=== PATIENT | male | born 1930 | race Caucasian/White ===

== ENCOUNTER 2017-09-24 05:58 | Inpatient (IN) | payer OTHER ==
[~2017-09-24] VITALS: Ht 175.3 cm; Wt 103.9 kg
[2017-09-24 06:14] VITALS: BP 138/88
[2017-09-24 13:31] VITALS: BP 159/77
[2017-09-24 17:20] LABS: BASOPHIL % 0.3 % (0-2); PLATELET COUNT 146 x10^3mcL (130-400); RED CELL DISTRIBUTION WIDTH 13.2 % (11.5-14.5)
[2017-09-24] MEDS ORDERED: METOPROLOL TART25 M1 PO (17:24)
[2017-09-24] MEDS ORDERED: FUROSEMIDE20 MG PO (17:24)
[2017-09-24] MEDS ORDERED: PAXIL20 M1 PO (17:25)
[2017-09-24] MEDS ORDERED: ZESTRIL20 MG PO (17:25)
[2017-09-24 17:32] VITALS: BP 111/72
[2017-09-24 17:36] LABS: ALKALINE PHOSPHATASE 71 U/L (46-116); ALT/SGPT 16 U/L (16-63); AST/SGOT 19 U/L (15-37); CALCIUM 8.2 mg/dL (8.5-10.1); CARBON DIOXIDE 29.1 mmol/L (21-32); CHLORIDE SERUM 107 mmol/L (98-107); GLUCOSE SERUM 198 mg/dL (74-106); HDL CHOLESTEROL 40 mg/dL (40-60); POTASSIUM SERUM 4.5 mmol/L (3.5-5.1); SODIUM SERUM 138 mmol/L (136-145); TRIGLYCERIDES 88 mg/dL (<150)
[2017-09-24 17:39] LABS: ALBUMIN 2.9 g/dL (3.4-5.0); CHOLESTEROL 130 mg/dL (<200); CHOLESTEROL/HDL RATIO 3.3; TOTAL PROTEIN, SERUM 5.9 g/dL (6.4-8.2)
[2017-09-24 21:39] VITALS: BP 102/65
[2017-09-25 05:39] VITALS: BP 115/70
[2017-09-25 05:58] LABS: BASOPHIL % 0.1 % (0-2); RED CELL DISTRIBUTION WIDTH 13.2 % (11.5-14.5)
[2017-09-25 06:16] LABS: CALCIUM 8.1 mg/dL (8.5-10.1); CHLORIDE SERUM 107 mmol/L (98-107); CREATININE SERUM 0.9 mg/dL (0.7-1.3); GLUCOSE SERUM 128 mg/dL (74-106); MAGNESIUM 1.8 mg/dL (1.8-2.4); PHOSPHOROUS 2.8 mg/dL (2.5-4.9); POTASSIUM SERUM 4.5 mmol/L (3.5-5.1); SODIUM SERUM 140 mmol/L (136-145)
[2017-09-25 06:37] LABS: PLATELET COUNT 119 x10^3mcL (130-400)
[2017-09-25 10:02] VITALS: BP 100/67
[2017-09-25 18:14] VITALS: BP 121/76
[2017-09-25 20:57] VITALS: BP 110/73
[2017-09-26 05:33] VITALS: BP 132/91
[2017-09-26 06:45] LABS: CALCIUM 7.8 mg/dL (8.5-10.1); CARBON DIOXIDE 26.4 mmol/L (21-32); CHLORIDE SERUM 102 mmol/L (98-107); CREATININE SERUM 0.8 mg/dL (0.7-1.3); GLUCOSE SERUM 144 mg/dL (74-106); MAGNESIUM 1.7 mg/dL (1.8-2.4); PHOSPHOROUS 2.4 mg/dL (2.5-4.9); POTASSIUM SERUM 3.9 mmol/L (3.5-5.1); SODIUM SERUM 137 mmol/L (136-145)
[2017-09-26 06:50] LABS: BASOPHIL % 0.3 % (0-2)
[2017-09-26 07:05] LABS: PLATELET COUNT 104 x10^3mcL (130-400)
[2017-09-26 10:39] VITALS: BP 139/75
[2017-09-26] MEDS ORDERED: HEP5I SC (13:52)
[2017-09-26] MEDS ORDERED: ACETAMINOPHEN-H1 TA1 PO (13:53)
[2017-09-26] MEDS ORDERED: COL100 PO (13:53)
[2017-09-26] MEDS ORDERED: KETOROLAC TR15 MG/M1 IV (13:54)
[2017-09-26 14:46] VITALS: BP 112/71
[2017-09-26 15:45] VITALS: BP 104/68
== END 2017-09-26 17:55 | DRG 469 ==
LOC: MU 05:58 → DU 13:10 → MU 17:10
PROVIDERS: Family Medicine; Neuromusculoskeletal Medicine, Sports Medicine
PROC: 0SR902A Replacement of Right Hip Joint with Metal on Polyethylene Synthetic Substitute, Uncemented, Open Approach (ICD-10-PCS; principal; 2017-09-24 07:30)
DX: M16.11 Unilateral primary osteoarthritis, right hip (principal); N17.0 Acute kidney failure with tubular necrosis; E44.0 Moderate protein-calorie malnutrition; I10 Essential (primary) hypertension; E11.51 Type 2 diabetes mellitus with diabetic peripheral angiopathy without gangrene; I25.10 Atherosclerotic heart disease of native coronary artery without angina pectoris; D64.9 Anemia, unspecified; F41.1 Generalized anxiety disorder; E83.42 Hypomagnesemia; E83.51 Hypocalcemia; E66.9 Obesity, unspecified; D69.6 Thrombocytopenia, unspecified; Z68.33 Body mass index [BMI] 33.0-33.9, adult; Z85.038 Personal history of other malignant neoplasm of large intestine
CPT/HCPCS: 82962; 94150; 97110-GP; 97116-GP; 97530-GP; C1776; J0360; J0690; J1644; J1885; J2405; J2704; J2710; J3010; J3475; J3490; J7120; Q0092